=== PATIENT | female | born 2000 | race Two or more races ===

== ENCOUNTER 2024-03-13 21:03 | Emergency (ER) | payer OTHER ==
[~2024-03-13] VITALS: Ht 154.9 cm; Wt 54.9 kg
[2024-03-13] MEDS ORDERED: DEXAMETHASONE SODIUM PHOSPHATE 4 MG/ML VIAL IM STA (23:22)
[2024-03-13] MEDS ORDERED: KETOROLAC TROMETHAMINE 10 MG TABLET PO STA (23:25)
[2024-03-14] MEDS ORDERED: DICLOFENAC POTA50 MG PO (02:26)
== END 2024-03-14 02:32 ==
LOC: ER 21:03
DX: S89.82XA Other specified injuries of left lower leg, initial encounter (principal); W19.XXXA Unspecified fall, initial encounter; Y93.89 Activity, other specified; Y92.89 Other specified places as the place of occurrence of the external cause; Y99.8 Other external cause status; Z88.9 Allergy status to unspecified drugs, medicaments and biological substances
CPT/HCPCS: 36415; 73700; 96372; 99284; J1100